=== PATIENT | male | born 1950 | race Caucasian/White ===

== ENCOUNTER 2024-08-25 13:41 | Outpatient (AMB) | payer MEDICARE, SELFPAY ==
--- NOTE | 2024-08-25 13:55 | HO.SPINEOV ---
Intake Visit Reasons: LBP Intake Note: Mr. Wheat is here today c/o left leg pain and sciatica. It Generalist Required: No Allergies morphine Allergy (Mild, Verified 08/25/24 14:10) Unknown Penicillins Allergy (Mild, Verified 08/25/24 14:10) Unknown Assessment & Plan Assessment & Plan (1) Lumbar disc herniation: Code(s): M51.26 - Other intervertebral disc displacement, lumbar region Category: Medical Plan Dear Amberly, Thank you for referring Mr Wheat to our office today. He is a very nice 73-year-old gentleman presents to the office today for evaluation of what sounds like a left S1 radiculopathy that started sometime in March. He was doing a bunch of lifting with heavy boxes and noticed since then a progressive pain that goes down into his left buttock, into his posterior thigh going down into his calf and the outer part of his foot. Recently he was prescribed gabapentin and that seems to have helped significantly. He is walking better now than he has any time since March. Overall he has also been treated with physical therapy and that seemed to be helping as well. He has had no cortisone injections yet. No history of back surgery. He had an MRI done out in the [place] showing herniated discs and came in today for surgical evaluation. 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 Social hx: He does not smoke, he will have a glass or 2 of wine with dinner, occasional marijuana gummies. Medications: Gabapentin Allergies: Penicillin, morphine Physical exam: Awake alert oriented no acute distress, gait is normal, strength and reflexes are normal. Imaging review: Lumbar MRI done at [facility] showing multilevel degenerative disc disease of the spine. At L1-2 there is a left small sized fragment that is tucked up behind the body of L1. The radiologist suggests that is compressing the left L2 nerve root. I think there is a little bit of compression there but it is not significant. He has moderate stenosis at L3-4 and L4-5. At L5-S1 there is a left-sided small disc herniation which is crowding the left lateral recess at this level causing compression of the left S1 nerve root. Impression: 73-year-old male presents with what sounds like a left S1 radiculopathy going down the back of his leg into his outer foot. He has a small disc herniation at L5-S1 which would explain this symptom. It is significantly better with gabapentin. I explained to him that 90% of these will go away on their own and that if he continues to wait it out is very likely it will resolve. He also has a disc herniation at L1-2 up above. There is some slight crowding of the lateral recess and this area as well. He did have some left anterior thigh pain at 1 point but it was attributed to some vein issues he was having that seems to have gone away. I do not think this disc herniation is currently active. It is well-known that patient is at his age do have many of these findings in the lumbar spine, and these are strictly incidental and asymptomatic. Right now I do not think he needs surgery. I told him to see how it goes using the gabapentin and if he is able to get by without surgery that would be ideal. If things return or escalate, I told him to come back and see us and we could discuss possible microdiskectomy. Thank you for allowing us to care for your patient. The total time spent with this visit with this patient was 45 minutes reviewing history, physical exam, lumbar imaging review, and implementation of treatment plan or further diagnostic testing Juan José Vega MD,PhD [facility] Coding Level of Care Code New Pt Level 4 (28778) Diagnoses Lumbar disc herniation M51.26
== END 2024-08-25 14:56 | disposition home or self-care (01) ==
PROVIDERS: Referring Provider Nurse Practitioner Family; Visit Provider Physician Assistant
DX: M51.26 Other intervertebral disc displacement, lumbar region (principal)
CPT/HCPCS: 99204

== ENCOUNTER → 2024-08-25 13:41 | Outpatient (BNVA) | payer MEDICARE, SELFPAY | PROVIDERS: Visit Provider Physician Assistant | DX: M51.26 Other intervertebral disc displacement, lumbar region (principal) | CPT/HCPCS: 99202 ==